=== PATIENT | female | born 1995 | race Caucasian/White ===

== ENCOUNTER → 2022-07-18 | Outpatient (CLI) | payer OTHER, SELFPAY ==
[2022-07-18 14:27] LABS: NATERA MAILED SPECIMEN
== END | disposition home or self-care (01) ==
LOC: LAB 11:13
PROVIDERS: Visit Provider Obstetrics & Gynecology
DX: Z31.5 Encounter for procreative genetic counseling (principal)
CPT/HCPCS: 36415

== ENCOUNTER 2022-11-14 15:01 | Outpatient (CLI) | payer OTHER, SELFPAY ==
[2022-11-17 09:07] LABS: Chlamydia By Nucleic Acid AMP Negative (Negative)
[2022-11-17 13:39] LABS: Gonococcus By Nucleic Acid AMP Negative (Negative)
== END 2022-11-14 23:59 | disposition home or self-care (01) ==
PROVIDERS: Visit Provider Obstetrics & Gynecology
DX: Z34.91 Encounter for supervision of normal pregnancy, unspecified, first trimester (principal); Z3A.09 9 weeks gestation of pregnancy
CPT/HCPCS: 87086; 87088; 87491; 87591

== ENCOUNTER 2022-11-14 15:03 | Outpatient (CLI) | payer OTHER, SELFPAY ==
[2022-11-14 15:22] LABS: Absolute Lymphocyte Count 1.97 X10^3/uL (0.83-4.51); Absolute Neutrophil Count 5.9 X10^3/uL (2.0-7.7); Basophil# 0.05 X10^3/uL; Basophil% 0.6 % (0-1); Eosinophil# 0.08 X10^3/uL; Eosinophils% 0.9 % (0-5); Hematocrit 38.5 % (37-47); Hemoglobin 12.6 g/dL (12.0-15.0); Lymphocyte # 1.97 X10^3/ul (0.83-4.51); Lymphocyte % 22.9 % (19-41); Mean Corp Hgb Conc 32.7 g/dL (32-36); Mean Corpuscular Hgb 29.5 pg (27.0-32.0); Mean Corpuscular Volume 90.2 fL (81-99); Mean Platelet Vol. 10.5 fl (6.2-12.0); Monocyte# 0.55 X10^3/uL; Monocyte% 6.4 % (0-10); NRBC Flagged by Analyzer 0 % (0-5); Neutrophil # 5.94 X10^3/uL (2.7-7.7); Neutrophil % 68.9 % (47-70); Platelet Count 253 K/mm3 (150-450); RBC Distribution Width CV 12.3 % (11.6-14.6); RBC Distribution Width SD 40.3 fl (35.1-43.9); Red Blood Count 4.27 M/mm3 (4.2-5.4); White Blood Count 8.6 K/mm3 (4.4-11.0)
[2022-11-14 16:41] LABS: HIV - WCH Non-Reactive (Nonreactive); Hepatitis B Surface Antigen Non-Reactive (Nonreactive); Rubella IgG Reactive (Nonreactive); Syphilis Antibodies Non-reactive
== END 2022-11-14 23:59 | disposition home or self-care (01) ==
PROVIDERS: Referring Provider Obstetrics & Gynecology; Visit Provider Obstetrics & Gynecology
DX: Z34.01 Encounter for supervision of normal first pregnancy, first trimester (principal); Z3A.09 9 weeks gestation of pregnancy
CPT/HCPCS: 36415; 85025; 86703; 86762; 86780; 86850; 86900; 86901; 87086; 87088; 87340; 87491; 87591

== ENCOUNTER → 2023-03-07 | Outpatient (CLI) | payer OTHER, SELFPAY ==
[2023-03-07 14:38] LABS: Glucose Challenge Gest 1H 50g 106 mg/dL (70-140)
[2023-03-07 15:17] LABS: HIV - WCH Non-Reactive (Nonreactive); Syphilis Antibodies Non-reactive
[2023-03-07 15:42] LABS: Hepatitis C Antibody Non-Reactive (Nonreactive)
== END | disposition home or self-care (01) ==
LOC: LAB 13:09
PROVIDERS: Referring Provider Obstetrics & Gynecology; Visit Provider Obstetrics & Gynecology
DX: Z34.00 Encounter for supervision of normal first pregnancy, unspecified trimester (principal); Z3A.09 9 weeks gestation of pregnancy
CPT/HCPCS: 36415; 82950; 86703; 86780; 86803

== ENCOUNTER → 2023-03-29 | Outpatient (CLI) | payer OTHER, SELFPAY ==
[2023-03-29 12:14] LABS: Absolute Lymphocyte Count 1.65 X10^3/uL (0.83-4.51); Absolute Neutrophil Count 5.9 X10^3/uL (2.0-7.7); Basophil# 0.03 X10^3/uL; Basophil% 0.4 % (0-1); Eosinophil# 0.04 X10^3/uL; Eosinophils% 0.5 % (0-5); Hematocrit 37.1 % (37-47); Hemoglobin 12.1 g/dL (12.0-15.0); Lymphocyte # 1.65 X10^3/ul (0.83-4.51); Mean Corp Hgb Conc 32.6 g/dL (32-36); Mean Corpuscular Hgb 30.9 pg (27.0-32.0); Mean Corpuscular Volume 94.6 fL (81-99); Mean Platelet Vol. 11.4 fl (6.2-12.0); Monocyte# 0.57 X10^3/uL; Monocyte% 6.9 % (0-10); NRBC Flagged by Analyzer 0 % (0-5); Neutrophil # 5.93 X10^3/uL (2.7-7.7); Neutrophil % 71.7 % (47-70); Platelet Count 215 K/mm3 (150-450); RBC Distribution Width CV 12.7 % (11.6-14.6); RBC Distribution Width SD 43.9 fl (35.1-43.9); Red Blood Count 3.92 M/mm3 (4.2-5.4); White Blood Count 8.3 K/mm3 (4.4-11.0)
== END | disposition home or self-care (01) ==
LOC: LAB 11:50
PROVIDERS: Referring Provider Obstetrics & Gynecology; Visit Provider Obstetrics & Gynecology
DX: Z34.00 Encounter for supervision of normal first pregnancy, unspecified trimester (principal)
CPT/HCPCS: 36415; 85025

== ENCOUNTER 2023-04-06 22:42 | Outpatient (CLI) | payer OTHER, SELFPAY ==
[2023-04-06 22:58] VITALS: BP 104/55; PULSE 67; TEMP 36.7; O2SAT 97
[2023-04-06 23:08] VITALS: BMI 22.9
--- NOTE | 2023-04-06 23:57 | OB.TRI.HP_ITS ---
HPI - General HPI Narrative JEFE CORNELL, is a 27 F who presents to labor and delivery for decreased movement and NST Maternal Data Information HELADIO Calculator Estimated Delivery Date Method Current WG Current Estimate 06/17/23 LMP (Certain) 31w 3d PFSH PFSH Medical History (Updated 04/18/23 @ 08:[address] Padmini Posey, DO) ADD (attention deficit disorder) Asthma Choroid plexus cyst Home Medications epuqndqs-yws-Rp-FA 1 mg tablet 1 tab PO 04/06/23 [History Last Taken 04/05/23] Allergy/AdvReac Type Severity Reaction Status Date / Time No Known Allergies Allergy Verified 04/06/23 23:13 Social History adopted: Yes household members: spouse housing: house current occupational status: unemployed current occupational exposures/hazards: No pets and animals: No history of recent travel: No sexually active: Yes Smoking Status: Never smoker second hand exposure: No alcohol intake: never substance use type: does not use well-balanced diet: daily or most days caffeine: No what type of physical activity do you participate in: walking and yoga olvin/zoroastrian: Amish seatbelt use: always do you feel safe at home: Yes 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, 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) History 2 1 Elective abortions Hx Para 0 Spontaneous abortions Hx # Term Pregnancies Ectopic pregnancies Hx # Pregnancies Multiple births # of living children Visit Details Expected Delivery Route/Plan Labor Preferences- CB/BF classes: [] labor support person: [] labor intervention preferences: [] pain management options preferred: [] cut cord/dad catch: [] : [] PP control planned: [] discussed possible routes of delivery and associated risks: [] special requests: [] Plans Covid status: discussed Flu vaccine: discussed Tdap vaccine: declined Rhogam: [] LARC form signed: [] movement and labor precautions reviewed. Problem list reviewed and updated with the most current plan of care details and appropriate orders placed. Relevant counseling for the gestational age provided. Continue routine care and follow up unless otherwise noted in visit notes/problem list details OB Flowsheet Initial Weight: Not Recorded Date -?-?-?-?-?-?-?-?-?-?-?-?- EGA Weight BP Urine Prot -?-?-?-?-?-?-?-?-?-?-?-?- Glucose FHR FuHt Pres Dilation -?-?-?-?-?-?-?-?-?-?-?-?- Effaced St Visit Note 11/14/22 -?-?-?-?-?-?-?-?-?-?-?-?- 9w 2d 129 lb 105/72 -?-?-?-?-?-?-?-?-?-?-?-?- 185 -?-?-?-?-?-?-?-?-?-?-?-?- SM- CRL 2.6cm co ns with LMP 12/11/22 -?-?-?-?-?-?-?-?-?-?-?-?- 13w 1d 133 lb 6 oz 103/66 Nega tive -?-?-?-?-?-?-?-?-?-?-?-?- Negative 150 -?-?-?-?-?-?-?-?-?-?-?-?- JV- still having nausea and inability to sleep. declines medications. having some lightning crotch we discussed etiology. 01/08/23 -?-?-?-?-?-?-?-?-?-?-?-?- 17w 1d 136 lb 2 oz 102/64 Nega tive -?-?-?-?-?-?-?-?-?-?-?-?- Negative 148 -?-?-?-?-?-?-?-?-?-?-?-?- MH-No Vb, crampi ng. Doing well. 02/05/23 -?-?-?-?-?-?-?-?-?-?-?-?- 21w 1d 139 lb 2 oz 110/65 Nega tive -?-?-?-?-?-?-?-?-?-?-?-?- Negative 145 -?-?-?-?-?-?-?-?-?-?-?-?- JV- lots of ques tions today about plan, depression, and anatomy scan. all answered. 03/07/23 -?-?-?-?-?-?-?-?-?-?-?-?- 25w 3d 144 lb 8 oz 104/59 Nega tive -?-?-?-?-?-?-?-?-?-?-?-?- Negative 140 25 -?-?-?-?-?-?-?-?-?-?-?-?- SM- no vb lof go od fm no regular ctx 04/04/23 -?-?-?-?-?-?-?-?-?-?-?-?- 29w 3d 145 lb 6 oz 109/74 Nega tive -?-?-?-?-?-?-?-?-?-?-?-?- Negative 145 29 -?-?-?-?-?-?-?-?-?-?-?-?- SM- no vb lof go od fm no regular ctx ROS Constitutional Constitutional: Reports systems reviewed and no addt'l complaints, except as documented Gastrointestinal Gastrointestinal: Denies bloating, constipation, cramping, diarrhea, nausea or vomiting Genitourinary Genitourinary: Reports other Details: Denies vaginal odor, vaginal bleeding, or vaginal discharge ; Denies difficulty urinating or flank pain NST FHR Rate Baby A Baseline: 135 Variability:: Moderate Accelerations:: 15 x 15 Decelerations:: None NST Reactive:: Yes FHR Category:: Category I Assessment & Plan (1) Decreased movement affecting management of mother, antepartum: (2) Depression affecting : COMMENT: no meds, counseling encouraged (3) Choroid plexus cyst: COMMENT: nipt declined. (4) Supervision of normal first : COMMENT: PRR HELADIO:06/17/2023. quang Joyner (5) : QUALIFIERS: Weeks of gestation: 25 weeks Qualified Code(s): Z3A.25 - 25 weeks gestation of COMMENT: anatomy nl, declined afp, genetic and carrier screening. (6) ADD (attention deficit disorder): COMMENT: was on Atarax (7) Asthma: COMMENT: daily advair PLAN: Plan NST reactive and patient reassured ok to dc to home Charges/Coding Multi Select Codes Urinary/Genital Urinary/Genital CPT Codes: 94537-23 non-stress test Interp
== END 2023-04-07 00:10 | disposition home or self-care (01) ==
LOC: WPOUT 22:49 → WP 22:49
PROVIDERS: Referring Provider Obstetrics & Gynecology; Visit Provider Obstetrics & Gynecology
DX: O36.8120 Decreased fetal movements, second trimester, not applicable or unspecified (principal); Z3A.25 25 weeks gestation of pregnancy; O99.342 Other mental disorders complicating pregnancy, second trimester; F32.A Depression, unspecified; O99.352 Diseases of the nervous system complicating pregnancy, second trimester; G93.0 Cerebral cysts; F98.8 Other specified behavioral and emotional disorders with onset usually occurring in childhood and adolescence; O99.512 Diseases of the respiratory system complicating pregnancy, second trimester; J45.909 Unspecified asthma, uncomplicated
CPT/HCPCS: 59025; 59050

== ENCOUNTER → 2023-04-30 | Outpatient (CLI) | payer OTHER, SELFPAY ==
--- NOTE | 2023-04-30 15:50 | US_ITS ---
STUDY: SECOND AND THIRD TRIMESTER OBSTETRICAL ULTRASOUND - LIMITED REASON FOR EXAM: Female, 27 years old small for gestational age LMP: 09/10/2022. Established due date: 06/17/2023. Gestational age by LMP: 33 weeks 1 day. PRIOR ULTRASOUND: None. TECHNIQUE: Transabdominal scanning. TECHNICAL QUALITY: Adequate. FINDINGS: There is a single intrauterine fetus. The fetus is in a cephalic presentation. There is demonstrated cardiac activity with a heart rate of 141 bpm. There is a normal amniotic fluid volume. The largest amniotic fluid pocket measures 4.9 cm. The amniotic fluid index (LAZARUS) is 13.3 cm. The placenta is anterior; no placenta previa or abruption. The cervix measures 3.1 cm in length, and is closed. BIOMETRY: BPD: 8.53 cm: 34 weeks, 3 days HC: 30.85 cm: 34 weeks, 3 days AC: 20.47 cm: 32 weeks, 3 days FL: 6.11 cm: 31 weeks, 5 days CI: 78.7% FL/AC: 21.5% FL/BPD : 71.7% HC/AC 1.08 Age by LMP: 33 weeks, 1 days. HELADIO by LMP: 06/17/2023. age by current US: 33 weeks, 5 days. HELADIO by current US: 06/13/2023. Estimated weight: 2023 grams, +/- 303 grams, 28 percentile. US/OB Limited With Biometrics IMPRESSION: Single intrauterine gestation demonstrating cardiac activity. by current ultrasound: 33 weeks 5 days. LAZARUS: 13.3 cm. Electronically Signed: Prabhakar Rg MD at 23:34 EDT ,
== END | disposition home or self-care (01) ==
LOC: US 15:49
PROVIDERS: Referring Provider Obstetrics & Gynecology; Visit Provider Obstetrics & Gynecology
DX: O36.5990 Maternal care for other known or suspected poor fetal growth, unspecified trimester, not applicable or unspecified (principal)
CPT/HCPCS: 76816

== ENCOUNTER → 2023-05-23 | Outpatient (CLI) | payer OTHER, SELFPAY | END | disposition home or self-care (01) | PROVIDERS: Visit Provider Advanced Practice Midwife | DX: Z34.90 Encounter for supervision of normal pregnancy, unspecified, unspecified trimester (principal) | CPT/HCPCS: 87081 ==

== ENCOUNTER 2023-06-10 15:55 | Outpatient (CLI) | payer OTHER, SELFPAY ==
--- NOTE | 2023-06-10 16:01 | US_ITS ---
INDICATION: measuring small for gestational age COMPARISON: None. FINDINGS: 34+58 grayscale ultrasound images demonstrate single live intrauterine in cephalic presentation measuring at 37 weeks +6 days average ultrasound age. Estimated weight 3014 g, 18th percentile. heart rate 150 bpm. Adequate amniotic fluid for gestational age, LAZARUS 12 cm. Deepest vertical pocket 3.8 cm x 2.0 cm. Anterior placenta is unremarkable for gestational age. Few prominent venous lakes. Uterine myometrium is unremarkable. Uterine cervix is not well visualized. Bilateral ovaries are not visualized. Biophysical profile 6/8, with 2 points each for movement, tone, and amniotic fluid. 0 points for breathing movements. No significant free fluid. US/Biophysical Prof W/O Non Stres IMPRESSION: Single live intrauterine in cephalic presentation measuring at 37 weeks +6 days average ultrasound age. Estimated weight 3014 g, 18th percentile. Biophysical profile 68. Electronically Signed: Rodger Ragsdale MD at 2:00 EDT ,
--- NOTE | 2023-06-10 16:01 | US_ITS ---
INDICATION: measuring small for gestational age COMPARISON: None. FINDINGS: 34+58 grayscale ultrasound images demonstrate single live intrauterine in cephalic presentation measuring at 37 weeks +6 days average ultrasound age. Estimated weight 3014 g, 18th percentile. heart rate 150 bpm. Adequate amniotic fluid for gestational age, LAZARUS 12 cm. Deepest vertical pocket 3.8 cm x 2.0 cm. Anterior placenta is unremarkable for gestational age. Few prominent venous lakes. Uterine myometrium is unremarkable. Uterine cervix is not well visualized. Bilateral ovaries are not visualized. Biophysical profile /8, with 2 points each for movement, tone, and amniotic fluid. 0 points for breathing movements. No significant free fluid. US/OB Limited With Biometrics IMPRESSION: Single live intrauterine in cephalic presentation measuring at 37 weeks +6 days average ultrasound age. Estimated weight 3014 g, 18th percentile. Biophysical profile 05/08. Electronically Signed: Rodger Ragsdale MD at 2:00 EDT ,
[2023-06-10 16:11] VITALS: O2SAT 98
[2023-06-10 16:12] VITALS: BP 115/71; PULSE 65; PULSE 66; TEMP 36.3; O2SAT 99
[2023-06-10 16:15] VITALS: BMI 23.8
--- NOTE | 2023-06-10 20:29 | NURSING ---
Called [facility] and notified RN was still waiting on growth US results. MD states to call department and if LAZARUS is greater than 6 and growth percentile is greater than 10 pt can go home. Rn called US and received the results of LAZARUS 11.8, and growth percentage is 18%. RN to notify pt and pt to be DC home.
--- NOTE | 2023-06-10 20:50 | OB.TRI.PN ---
Progress Notes Date of Service: 06/10/23 Progress Note: Patient presents for triage evaluation secondary to questionable ROM FHT: 130 Moderate variability reactive no decelerations category I tracing [place]: no regular Contractions Assessment and plan: amniotic membranes intact false labor Reactive NST, reassuring maternal and status patient discharged to home to follow-up as scheduled. See problem list details for additional plan information. Charges/Coding Procedures Urinary/Genital [id number]: 76209-67 non-stress test Interp
== END 2023-06-10 20:35 | disposition home or self-care (01) ==
LOC: WPOUT 16:00 → WP 16:00
PROVIDERS: Referring Provider Obstetrics & Gynecology; Visit Provider Obstetrics & Gynecology
DX: O47.9 False labor, unspecified (principal); Z3A.00 Weeks of gestation of pregnancy not specified
CPT/HCPCS: 59025; 59050; 76816; 76819; 99221; G0378

== ENCOUNTER → 2023-06-10 | Outpatient (CLI) | payer OTHER, SELFPAY ==
[2023-06-10 16:14] LABS: ROM Internal Control Test YES-OK TO RESULT pt. (Internal QC); ROM Patient Test Negative (Negative); Record Kit Lot#, ROM+ K1374
== END | disposition home or self-care (01) ==
PROVIDERS: Referring Provider Advanced Practice Midwife; Visit Provider Advanced Practice Midwife
DX: N89.8 Other specified noninflammatory disorders of vagina (principal)
CPT/HCPCS: 84112

== ENCOUNTER 2023-06-20 22:40 | Inpatient (IN) | payer OTHER, SELFPAY ==
[2023-06-20 22:19] VITALS: BP 133/76; PULSE 73; O2SAT 99
[2023-06-20 22:21] VITALS: TEMP 36.6
[2023-06-20 22:42] VITALS: BMI 23.5
[2023-06-20] MEDS: LACTATED RINGERS 500 ML 999 ML IV (23:10)
[2023-06-20] MEDS: Ondansetron 4 MG/2 ML Vial IV (23:23)
[2023-06-20 23:26] LABS: Absolute Lymphocyte Count 2.35 X10^3/uL (0.83-4.51); Basophil# 0.06 X10^3/uL; Basophil% 0.4 % (0-1); Eosinophil# 0.04 X10^3/uL; Eosinophils% 0.2 % (0-5); Hematocrit 39.7 % (37-47); Hemoglobin 13.5 g/dL (12.0-15.0); Lymphocyte # 2.35 X10^3/ul (0.83-4.51); Lymphocyte % 14.5 % (19-41); Mean Corpuscular Hgb 31.1 pg (27.0-32.0); Mean Corpuscular Volume 91.5 fL (81-99); Mean Platelet Vol. 11.6 fl (6.2-12.0); Monocyte# 0.59 X10^3/uL; Monocyte% 3.6 % (0-10); NRBC Flagged by Analyzer 0 % (0-5); Neutrophil # 13.04 X10^3/uL (2.7-7.7); Neutrophil % 80.7 % (47-70); Platelet Count 215 K/mm3 (150-450); RBC Distribution Width CV 12.5 % (11.6-14.6); RBC Distribution Width SD 41.6 fl (35.1-43.9); Red Blood Count 4.34 M/mm3 (4.2-5.4); White Blood Count 16.2 K/mm3 (4.4-11.0)
[2023-06-20] MEDS: Lactated Ringers 1,000 ML 200 ML IV (23:40)
[2023-06-21] VITALS (82 sets, daily range): BP systolic 89–158; BP diastolic 11–91; PULSE 58–214; RESP 14–18; TEMP 36.3–37.7; O2SAT 81–100
[2023-06-21] MEDS: fentaNYL-bupivacaine (epidural) 100 ML BAG EPIDURAL (00:17)
[2023-06-21 01:17] LABS: Syphilis Antibodies Non-reactive
[2023-06-21] MEDS: LACTATED RINGERS 500 ML 999 ML IV (01:43)
[2023-06-21] MEDS: Oxytocin 10 UNITS/ML Vial IM (04:49)
[2023-06-21] MEDS: Oxytocin 15 Units/NS 250ml 15 UNITS/250 ML IV.SOLN 83 UNITS IV (04:50)
--- NOTE | 2023-06-21 05:10 | HP.PCM.OB_ITS ---
HPI - General General Date of Admission: 06/20/23 HPI Narrative JEFE CORNELL, is a 27 y/o @ 40 weeks 4 days who presents to L&D in active labor. Contractions are coming every 5 minutes and she is tearful, requesting an epidural. Maternal Data Information HELADIO Calculator Estimated Delivery Date Method Current WG Current Estimate 06/17/23 LMP (Certain) 40w 4d Final HELADIO: 06/17/23 Gestational age: 40 weeks 4 days PFSH PFSH Medical History (Updated 06/20/23 @ 23:30 by Janel Pedraza) ADD (attention deficit disorder) Asthma Choroid plexus cyst Depression Home Medications vnxwogzu-vpt-Ch-FA 1 mg tablet 1 tab PO DAILY 04/06/23 [History Last Taken 06/20/23] sertraline 50 mg tablet (Zoloft) 50 mg PO DAILY #30 tabs 05/26/23 [Rx Last Taken 06/20/23] albuterol sulfate 90 mcg/actuation aerosol inhaler inhalation 06/20/23 [History Last Taken Unknown] fluticasone 100 mcg-salmeterol 50 mcg/dose blistr powdr for inhalation (Advair Diskus) inhalation 06/20/23 [History Last Taken 06/20/23] Allergy/AdvReac Type Severity Reaction Status Date / Time No Known Allergies Allergy Verified 06/20/23 22:22 Social History adopted: Yes household members: spouse housing: house current occupational status: unemployed current occupational exposures/hazards: No pets and animals: No history of recent travel: No sexually active: Yes Smoking Status: Never smoker second hand exposure: No alcohol intake: never substance use type: does not use well-balanced diet: daily or most days caffeine: No what type of physical activity do you participate in: walking and yoga olvin/taoism: Yarsani seatbelt use: always do you feel safe at home: Yes 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, 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 1 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 abortions Hx Para 0 Spontaneous abortions Hx # Term Pregnancies Ectopic pregnancies Hx # Pregnancies Multiple births # of living children Visit Details Expected Delivery Route/Plan Labor Preferences- CB/BF classes: end may labor support person: Ar labor intervention preferences: wants to try different positions, not on back laboring, tub, shower pain management options preferred: open to epidural if needed, prefers nitrous first cut cord/dad catch: Ar to cut cord : yes PP control planned: undecided for now, No Iud discussed possible routes of delivery and associated risks: discussed special requests: nurses to be present at all times. no episiotomy. Plans Covid status: discussed Flu vaccine: discussed Tdap vaccine: declined Rhogam: na LARC form signed: movement and labor precautions reviewed. Problem list reviewed and updated with the most current plan of care details and appropriate orders placed. Relevant counseling for the gestational age provided. Continue routine care and follow up unless otherwise noted in visit notes/problem list details OB Flowsheet Initial Weight: Not Recorded Date -?-?-?-?-?-?-?-?-?-?-?-?- EGA Weight BP Urine Prot -?-?-?-?-?-?-?-?-?-?-?-?- Glucose FHR FuHt Pres Dilation -?-?-?-?-?-?-?-?-?-?-?-?- Effaced St Visit Note 11/14/22 -?-?-?-?-?-?-?-?-?-?-?-?- 9w 2d 129 lb 105/72 -?-?-?-?-?-?-?-?-?-?-?-?- 185 -?-?-?-?-?-?-?-?--?-?-?-?- SM- CRL 2.6cm co ns with LMP 12/11/22 -?-?-?-?-?-?-?-?-?-?-?-?- 13w 1d 133 lb 6 oz 103/66 Nega tive -?-?-?-?-?-?-?-?-?-?-?-?- Negative 150 -?-?-?-?-?-?-?-?-?-?-?-?- JV- still having nausea and inability to sleep. declines medications. having some lightning crotch we discussed etiology. 01/08/23 -?-?-?-?-?-?-?-?-?-?-?-?- 17w 1d 136 lb 2 oz 102/64 Nega tive -?-?-?-?-?-?-?-?-?-?-?-?- Negative 148 -?-?-?-?-?-?-?-?-?-?-?-?- MH-No Vb, romie ng. Doing well. 02/05/23 -?-?-?-?-?-?-?-?-?-?-?-?- 21w 1d 139 lb 2 oz 110/65 Nega tive -?-?-?-?-?-?-?-?-?-?-?-?- Negative 145 -?-?-?-?-?-?-?-?-?-?-?-?- JV- lots of ques tions today about plan, depression, and anatomy scan. all answered. 03/07/23 -?-?-?-?-?-?-?-?-?-?-?-?- 25w 3d 144 lb 8 oz 104/59 Nega tive -?-?-?-?-?-?-?-?-?-?-?-?- Negative 140 25 -?-?-?-?-?-?-?-?-?-?-?-?- SM- no vb lof go od fm no regular ctx 04/04/23 -?-?-?-?-?-?-?-?-?-?-?-?- 29w 3d 145 lb 6 oz 109/74 Nega tive -?-?-?-?-?-?-?-?-?-?-?-?- Negative 145 29 -?-?-?-?-?-?-?-?-?-?-?-?- SM- no vb lof go od fm no regular ctx 04/25/23 -?-?-?-?-?-?-?-?-?-?-?-?- 32w 3d 147 lb 8 oz 126/74 Nega tive -?-?-?-?-?-?-?-?-?-?-?-?- Negative 140 29 -?-?-?-?-?-?-?-?-?-?-?-?- JV- still measur ing small. will order growth scan but suspect long torso 05/08/23 -?-?-?-?-?-?-?-?-?-?-?-?- 34w 2d 147 lb 8 oz 106/68 Nega tive -?-?-?-?-?-?-?-?-?-?-?-?- Negative 145 33 -?-?-?-?-?-?-?-?-?-?-?-?- SM- no vb lof go od fm no regular ctx 05/23/23 -?-?-?--?-?-?-?-?-?-?-?-?- 36w 3d 149 lb 8 oz 114/68 Nega tive -?-?-?-?-?-?-?-?-?-?-?-?- Negative 130 34 -?-?-?-?-?-?-?-?-?-?-?-?- KW-+FM. no lof/v b/ctx. GBS today. deferred SVE. LARC done 06/04/23 -?-?-?-?-?-?-?-?-?-?-?-?- 38w 1d 151 lb 107/72 Negative -?-?-?-?-?-?-?-?-?-?-?-?- Negative 130 35 Cephalic -?-?-?-?-?-?-?-?-?-?-?-?- JV- no lof, vagi nal bleeding, or dec fm JV- no lof, vaginal bleeding , or dec fm. feeling fatigue and nausea with the zoloft 50mg, will go down to 25mg. JV- no lof, vaginal bleeding , or dec fm. feeling fatigue and nausea with the zoloft 50mg, will go down to 25mg. LAZARUS 9, but if measuring small next visit will need formal ultrasound. 06/10/23 -?-?-?-?-?-?-?-?-?-?-?-?- 39w 0d 151 lb 111/72 Negative -?-?-?-?-?-?-?-?-?-?-?-?- Negative 150 34 Cephalic 2 -?-?-?-?-?-?-?-?-?-?-?-?- 70 -2 KW-+FM, po ssible SROM- ROM+ today. no ctx/vb. US ordered S<D KW-+FM, possible SROM- ROM+ today. no ctx/vb. to WP. 06/11/23 -?-?-?-?-?-?-?-?-?-?-?-?- 39w 1d 150 lb 2 oz 107/68 Nega tive -?-?-?-?-?-?-?-?-?-?-?-?- Negative 130 2 -?-?-?-?-?-?-?-?-?-?-?-?- 70 KW-+FM. membrane sweep today. labor precautions reviewed. Had BPP (6/8) and growth (18%) on L&D yesterday. 06/13/23 -?-?-?-?-?-?-?-?-?-?-?-?- 39w 3d 151 lb 2 oz 100/60 Nega tive -?-?-?-?-?-?-?-?-?-?-?-?- Negative 130 34 Cephalic 2 -?-?-?-?-?-?-?-?-?-?-?-?- 70 -2 KW-+fm. no vb/lof. some irregular contractions. membrane sweep 06/20/23 -?-?-?-?-?-?-?-?-?-?-?-?- 40w 3d 151 lb 2 oz 108/64 Nega tive -?-?-?-?-?-?-?-?-?-?-?-?- Negative 130 37 Cephalic 2 .5 -?-?-?-?-?-?-?-?-?-?-?-?- 80 -2 LC-no lof/ vb/no consistent ctx. reviewed r/b/a of proceeding past 41 weeks. will obtain growth and bpp at 41 weeks. nst at 41.3 with IOL at 41.6. reviewed with SM who agrees with plan. LC-no lof/vb/no consistent c tx. reviewed r/b/a of proceeding past 41 weeks. will obtain growth and bpp at 41 weeks. nst at 41.3 with IOL scheduled on 06/30. reviewed with SM who agrees with plan. ROS Constitutional Constitutional: Denies change in weight, fatigue, fever(s), headache(s), poor appetite or weakness Eyes Eyes: Denies blurry vision, change in vision, seeing flashes or spots in vision ENT HEENT: Denies dizziness, headache(s), loss taste/smell or sore throat Cardiovascular Cardiovascular: Denies chest pain, dizziness, dyspnea, irregular heart rhythm, leg edema, palpitations, rapid heart rate or vomiting Respiratory/Chest Respiratory/Chest: Denies chest tightness, cough, dyspnea or breast pain Gastrointestinal Gastrointestinal: Denies abdominal pain, anorexia, constipation, cramping, diarrhea, hemorrhoids, vomiting or weight changes Genitourinary Genitourinary: Denies dysuria, flank pain, genital lesions, genital pain, urinary frequency or urinary urgency Musculoskeletal Musculoskeletal: Denies back pain, difficulty walking, joint pain, limited range of motion, muscle cramps or numbness Integumentary Integumentary: Denies lesions or unusual bruising Neurologic Neurologic: Denies abnormal movements, abnormal speech, dizziness, numbness, seizure-like activity or syncope Psychiatric Psychiatric: Denies anxiety, behavioral changes, change in appetite, change in libido, cognitive impairment, confusion, depression, difficulty concentrating, hallucinations or suicidal thoughts Endocrine Endocrinology: Denies excessive sweating, polydipsia or polyuria Hematologic/Lymphatic Hematologic/Lymphatic: Denies easy bleeding, easy bruising or lymphadenopathy Allergic/Immunologic Allergic/Immunologic: Denies itchy eyes, lip swelling, seasonal rhinorrhea, rhinitis, throat swelling, tongue swelling, eczemia, wheezing or asthma Vital Signs Vital Signs Vital Signs: 06/20/23 22:19 06/20/23 22:19 06/20/23 22:19 Temperature Temperature Source Pulse Rate 73 Blood Pressure 133/76 H BP Systolic 133 BP Diastolic 76 Pulse Ox 99 06/20/23 22:21 06/20/23 22:21 06/21/23 00:05 Temperature 97.8 F Temperature Source Temporal Pulse Rate 97 Blood Pressure BP Systolic BP Diastolic Pulse Ox 06/21/23 00:05 06/21/23 00:10 06/21/23 00:10 Temperature Temperature Source Pulse Rate 93 Blood Pressure BP Systolic BP Diastolic Pulse Ox 98 100 06/21/23 00:11 06/21/23 00:11 06/21/23 00:15 Temperature Temperature Source Pulse Rate 95 77 Blood Pressure 123/83 H BP Systolic 123 BP Diastolic 83 Pulse Ox 06/21/23 00:15 06/21/23 00:17 06/21/23 00:17 Temperature Temperature Source Pulse Rate 66 Blood Pressure 130/81 H BP Systolic 130 BP Diastolic 81 Pulse Ox 100 06/21/23 00:20 06/21/23 00:20 06/21/23 00:22 Temperature Temperature Source Pulse Rate 71 Blood Pressure 121/63 H BP Systolic 121 BP Diastolic 63 Pulse Ox 98 06/21/23 00:22 06/21/23 00:25 06/21/23 00:25 Temperature Temperature Source Pulse Rate 73 74 Blood Pressure BP Systolic BP Diastolic Pulse Ox 100
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
--- NOTE | 2023-06-21 05:15 | OP.PCM_ITS ---
Assessment & Plan (1) Small for gestational age fetus affecting management of mother: COMMENT: 5/ 28% (2) Depression affecting : COMMENT: counseling encouraged started on zoloft at 36 weeks for intrusive thoughts of harm.no plan. support international resources. to present to ED if having suicidial ideations. safe plan in place on who to call. (3) Supervision of normal first : COMMENT: PRR HELADIO:06/17/2023. quang Joyner (4) : QUALIFIERS: Weeks of gestation: 40 weeks Qualified Code(s): Z3A.40 - 40 weeks gestation of COMMENT: anatomy nl, declined afp, genetic and carrier screening. gbs negative (5) Choroid plexus cyst: COMMENT: nipt declined. (6) ADD (attention deficit disorder): COMMENT: was on Atarax (7) Asthma: COMMENT: daily advair Maternal Data Information HELADIO Calculator Estimated Delivery Date Method Current WG Current Estimate 06/17/23 LMP (Certain) 40w 4d Vaginal Delivery Maternal Presentation Maternal Presentation: Active Labor Type of Induction: Amniotomy Operative Information Date of Procedure: 06/21/23 Pre-Operative Diagnosis: @ 40 weeks 4 days, active labor Post-Operative Diagnosis: @ 40 weeks 4 days, active labor Surgery / Procedure Performed: Spontaneous Vaginal Delivery Type of Anesthesia: Epidural Estimated Blood Loss: 200cc Findings Description of Procedure: Patient began pushing and delivered the head in the CONNER presentation. The head was delivered atraumatically.. The anterior and posterior shoulders delivered without complication followed by the rest of the infant and the was placed on the maternal abdomen. Delayed cord clamping was employed for approximately 60 seconds. Cord was clamped and cut and gentle traction was applied to the cord and the placenta delivered spontaneously immediately following it was noted to be intact with three-vessel cord. The perineum and vagina were inspected and noted to have no laceration. There was a right labial tear that was repaired using a 3-0 vicryl and a left vaginal wall laceration that was also repaired with a 3-0 vicryl. EBL was 200. Patient and infant tolerated delivery well. Presentation: Vertex Amniotic Membrane Rupture Type: Artificial Amniotic Fluid Description: Lightly stained meconium Placental Delivery Description: Spontaneous Placenta Disposition: [facility] Cord Vessel Description: 3 Vessels Cord Entanglement: None Infant A Gender: Male (1 minute): 8 (5 minute): 9 Delayed Cord Clamping: Yes Post Vaginal Delivery Medications Given After Delivery: IM Pitocin Episiotomy Description: None Laceration: Periurethral Extnsion/lac (right labial and left side wall, close to urethra) Multi Select Codes Urinary/Genital Urinary/Genital CPT Codes: 79926 Vaginal Delivery [facility]
--- NOTE | 2023-06-21 05:20 | DCINST_ITS ---
Discharge Instructions Diet Discharge Diet: No restrictions Activity Discharge Activity: Return to Normal Activity, May Not Drive (while taking narcotic pain medications.) and May Shower May resume sexual activity in: 4-6 weeks Dressing / Incision Call your doctor if your incision/area has: Continuous Slow Oozing, Sudden Increased Bleeding, Increased Pain/ Swelling, Increased Redness and Foul Smelling Discharge Follow Up Care Please Follow Up With: Padmini Posey DO When: Call [phone] to make an appointment with your doctor in 6 weeks. If you had elevated blood pressure or 4th degree laceration, you will need to be seen in 2 weeks. Test Results: Test results from this visit will be discussed in further detail at your follow- up appointment, if applicable. Discharge Plan Admission Admit Date/Time: 06/20/23 22:40 Primary Reason for Your Visit: vaginal delivery and labial repair Attending Provider: Padmini Posey Primary Care Provider: Care Physician,Tatum Primary Discharge Orders/Prescriptions Prescriptions: New naproxen 500 mg tablet 500 mg PO BID PRN (Reason: pain) Qty: 30 0RF Continued sertraline [Zoloft] 50 mg tablet 50 mg PO DAILY Qty: 30 1RF [id number] 1 mg Tablet 1 tab PO DAILY fluticasone propion-salmeterol [Advair Diskus] 100-50 mcg/dose blister with device INHALATION albuterol sulfate 90 mcg/actuation HFA aerosol inhaler INHALATION Referrals / Follow Up: Care Physician,No Primary [Primary Care Provider] - Disposition Disposition (needs filled in before D/C Order can be placed): Home, Self Care
[2023-06-21] MEDS: Acetaminophen 500 MG Tablet 1000 MG PO ×3 (06:33→20:50)
[2023-06-21] MEDS: Naproxen 500 MG Tablet PO ×3 (08:05→23:32)
[2023-06-21] MEDS: Senna/Docusate Sodium 1 Tablet PO (10:06)
[2023-06-21] MEDS: Sertraline 50 MG Tablet PO (10:06)
[2023-06-21] MEDS: Benzocaine/Lanolin/Aloe Vera 1 SPRAY EACH TOPICAL (10:06)
[2023-06-21] MEDS: 0.9% Saline Lock 10 ML Syringe IV (10:07)
--- NOTE | 2023-06-21 20:37 | CASEMGMT ---
Social Work Assessment Labor and Delivery Unit Patient Address: [address] [place] Phone number: [phone] Date of Referral: 06/21/2023 Time of Referral:? 7:00 Referred By: Joanne Hernandez Date of Intervention: ?06/21/2023 Time of Intervention:? 17:30 Reason for Referral:? Mental Health hx History obtained from: medical records and mother of baby (MOB) Household composition: FOB, Ar and MOB and new baby Patient's parent/guardian status:? Parents report being and knowing each other for 2.5 years. Both report no other children. Medical History: MOB denies any medical concerns. MOB had adequate care. Baby boy weighing 5.9 lbs and 8/9 apgars. No medical concerns. Educational Status: No literacy concerns. Financial Status: Parents deny any financial needs or concerns. Supplies: Report bed and pack and play in parent?s room. Car seat and all other supplies available. Childcare/Caregiver(s):? MOB plans to stay home with child. Transportation: No concerns, two vehicles. Programs/Agencies Involved: ???None reported Children Services/Legal Issues:??? None reported Behavioral Health Issues: ?? Mental Health History: Patient reports having a counselor she is established with. Hx of ADHD with Adderall prior to . Pt reports depression/anxiety concerns and reports difficulty during and starting Zoloft while due to intrusive thoughts. Pt reports planning to continue Zoloft and being willing to discuss mental health with doctor symptoms worsen. Substance Use History:? Denies Family History: MOB is unaware of family history due to being adopted from an orphanage. Drug Screens: None Family/Social Stressors: Denies any stressors.? Support Systems: MOB/FOB report FOB?s parents are close and supportive. Depression: Provided education and resources, parents responded appropriately. Shaken Baby: Provided education and resources, parents responded appropriately. Safe Sleeping: Provided education and resources, parents responded appropriately. ASSESSMENT:? Nursing staff reports a lot of fluctuation in emotional status with MOB. MOB was open regarding difficulty with trusting staff during the process and anxiety regarding feeling out of control. SW assisted in processing this experience. Emotions stable and appropriate throughout assessment. SW provided [facility] resources, discussed mental health warning signs and encouraged MOB to seek help if needed. MOB is adopted without knowledge of family mental health history. MOB was appropriate with SW and holding baby with positive interactions throughout assessment. PLAN:? No other services requested or indicated. Yolanda Castro EXTRUDING PRESS ADJUSTER, EMERGENCY CARE TECH
[2023-06-22] MEDS: Acetaminophen 500 MG Tablet 1000 MG PO ×3 (02:12→21:21)
[2023-06-22 04:59] VITALS: BP 102/59; PULSE 75; RESP 18
[2023-06-22] MEDS: Naproxen 500 MG Tablet PO ×2 (07:27→16:11)
[2023-06-22 07:57] VITALS: BP 107/58; PULSE 64
[2023-06-22 07:58] VITALS: BP 107/58; PULSE 64; RESP 16; TEMP 36.6
--- NOTE | 2023-06-22 08:33 | PCM.PN.OB ---
Subjective Subjective Patient is in bed breast feeding. She states that the pain with breast feeding causing contractions is severe. She is tolerating PO, Ambulating and voiding without difficulty.She Denies chest pain, shortness of breath, calf pain/swelling, fevers, chills, lightheadedness. Objective Data Objective Data Vital Signs: Vital Signs Temp Pulse Resp BP Pulse Ox O2 Del Method 97.9 F 64 16 107/58 L 99 Room Air 06/22/23 07:58 06/22/23 07:58 06/22/23 07:58 06/22/23 07:58 06/21/23 16:15 06/22/23 07:58 Oxygen Delivery Method Room Air Weight: 150 lb Body Mass Index (BMI) 23.5 Intake & Output: Intake and Output for Last 24 Hours 06/20/23 06/21/23 06/22/23 23:59 23:59 23:59 Intake Total 499.5 / 499.5 1663.33 / 1663.33 Output Total 2950 / 2950 Balance 499.5 / 499.5 -1286.67 / -1286.67 Lab / Micro Data 06/20/23 23:10 ROS Constitutional Constitutional: Denies chills, fatigue, fever(s), poor appetite or weakness Eyes Eyes: Denies blurry vision, change in vision, seeing flashes or spots in vision ENT HEENT: Denies dizziness, headache(s), loss taste/smell or sore throat Cardiovascular Cardiovascular: Denies chest pain, dizziness, dyspnea, irregular heart rhythm, palpitations or rapid heart rate Respiratory/Chest Respiratory/Chest: Denies chest tightness, cough, dyspnea or breast pain Gastrointestinal Gastrointestinal: Denies abdominal pain, constipation or vomiting Genitourinary Genitourinary: Denies dysuria or flank pain Musculoskeletal Musculoskeletal: Denies difficulty walking, joint pain, limited range of motion or numbness Neurologic Neurologic: Denies abnormal movements, abnormal speech, dizziness, numbness, seizure-like activity or syncope Psychiatric Psychiatric: Denies anxiety, behavioral changes, change in appetite, confusion, depression or suicidal thoughts Physical Exam Const alert, oriented x3 and no apparent distress General Appearance: cooperative and comfortable Resp normal respiratory effort Cardio regular rate GI normal to inspection, nondistended, normoactive bowel sounds GI Narrative: uterus is firm below umbilicus Palpation: soft Back/Spine no CVA tenderness and thoraco-lumbar ROM normal Extremity normal to inspection, no clubbing, cyanosis or edema, no calf tenderness and no pedal edema Psych mental status grossly normal, thought process normal, cooperative, affect normal, speech normal, activity/motor behavior normal, denies homicidal ideation and denies suicidal ideation Assessment & Plan (1) Status post vaginal delivery: COMMENT: 06/21/23- KELVIN PLAN: s/p PPD # 1 1. routine post delivery care 2. breast feeding- support given 3. rh positive 4. rubella immune 5. plan for dc to home tomorrow
[2023-06-22] MEDS: Sertraline 50 MG Tablet 25 MG PO (10:51)
[2023-06-22] MEDS: Senna/Docusate Sodium 1 Tablet PO (12:41)
[2023-06-22 14:39] VITALS: BP 119/59; PULSE 70; RESP 16; TEMP 36.6; O2SAT 99
[2023-06-22 19:47] VITALS: BP 114/57; PULSE 62; RESP 14; TEMP 36.2
[2023-06-22 19:50] VITALS: BP 114/57; PULSE 62
[2023-06-23] MEDS: Naproxen 500 MG Tablet PO ×2 (00:19→08:52)
[2023-06-23] MEDS: Acetaminophen 500 MG Tablet 1000 MG PO (03:46)
[2023-06-23 03:48] VITALS: BP 118/66; PULSE 67; RESP 14; TEMP 36.1
[2023-06-23 07:43] VITALS: BP 106/57; PULSE 73
[2023-06-23 07:50] VITALS: BP 106/57; PULSE 73; RESP 18; TEMP 36.1
--- NOTE | 2023-06-23 08:28 | PCM.PN.OB ---
Subjective Subjective Patient doing well without complaints. Tolerating PO. Ambulating and voiding without difficulty. Feeding well. Denies chest pain, shortness of breath, calf pain/swelling, fevers, chills, lightheadedness. Objective Data Objective Data Vital Signs: Vital Signs Temp Pulse Resp BP Pulse Ox O2 Del Method 96.9 F L 73 18 106/57 L 99 Room Air 06/23/23 07:50 06/23/23 07:50 06/23/23 07:50 06/23/23 07:50 06/22/23 14:39 06/23/23 03:48 Oxygen Delivery Method Room Air Weight: 150 lb Body Mass Index (BMI) 23.5 Intake & Output: Intake and Output for Last 24 Hours 06/21/23 06/22/23 06/23/23 23:59 23:59 23:59 Intake Total 1663.33 / 1663.33 Output Total 2950 / 2950 Balance -1286.67 / -1286.67 Lab / Micro Data 06/20/23 23:10 Physical Exam Const alert, oriented x3 and no apparent distress General Appearance: cooperative and comfortable Resp normal respiratory effort Cardio regular rate GI normal to inspection, nondistended, normoactive bowel sounds GI Narrative: uterus is firm 4FB below umbilicus Palpation: soft Back/Spine no CVA tenderness and thoraco-lumbar ROM normal Extremity normal to inspection, no clubbing, cyanosis or edema, no calf tenderness and no pedal edema Psych mental status grossly normal, thought process normal, cooperative, affect normal, speech normal, activity/motor behavior normal, denies homicidal ideation and denies suicidal ideation Assessment & Plan (1) Status post vaginal delivery: COMMENT: 06/21/23- KELVIN Gan (2) Depression affecting : COMMENT: counseling encouraged started on zoloft at 36 weeks for intrusive thoughts of harm.no plan. support [employer]. to present to ED if having suicidial ideations. safe plan in place on who to call. PLAN: Plan s/p PPD # 2 1. routine post delivery care 2. breast feeding- support given 3. rh positive 4. rubella immune 5. d/c home today
[2023-06-23] MEDS: Sertraline 50 MG Tablet 25 MG PO (08:52)
== END 2023-06-23 11:25 | disposition home or self-care (01) | DRG 806 ==
LOC: WPOUT 22:52 → WP 22:52
PROVIDERS: Admitting Provider Obstetrics & Gynecology; Visit Provider Obstetrics & Gynecology
DX: O70.0 First degree perineal laceration during delivery (principal); Z37.0 Single live birth; O99.354 Diseases of the nervous system complicating childbirth; G93.0 Cerebral cysts; J45.909 Unspecified asthma, uncomplicated; F32.9 Major depressive disorder, single episode, unspecified; O99.344 Other mental disorders complicating childbirth; F90.0 Attention-deficit hyperactivity disorder, predominantly inattentive type; Z3A.40 40 weeks gestation of pregnancy; O48.0 Post-term pregnancy; O77.0 Labor and delivery complicated by meconium in amniotic fluid; O99.52 Diseases of the respiratory system complicating childbirth; O36.5930 Maternal care for other known or suspected poor fetal growth, third trimester, not applicable or unspecified
CPT/HCPCS: 59025; 59050; 85025; 86780; 86850; 86900; 86901; 99221; J7120; A4216; G0378; J2405

== ENCOUNTER → 2024-05-19 | Outpatient (CLI) | payer OTHER, SELFPAY ==
--- NOTE | 2024-05-19 17:05 | US_ITS ---
STUDY: ULTRASOUND OF THE FEMALE PELVIS - COMPLETE REASON FOR EXAM: Female, 28 years old. Pelvic pain left greater than right. LMP: May 09, 2024. TECHNIQUE: Transabdominal and Transvaginal TECHNICAL QUALITY: Adequate. COMPARISON: None. FINDINGS: The uterus is anteverted and is in a midline position. The uterus measures 7.8 cm x 6.1 cm x 3.9 cm. Normal uterine cervix. The endometrium measures 5 mm in thickness, and is hyperechoic. There is no demonstrated endometrial mass. There is no demonstrated myometrial mass. I.U.D. - The patient does not have an I.U.D. The right ovary is visualized. The right ovary measures 3.1 cm x 2.2 cm x 2.3 cm. There is no right ovarian cyst or ovarian mass. There is no visualized right adnexal mass or complex lesion. There is normal arterial and normal venous vascularity. The left ovary is visualized. The left ovary measures 4.3 cm x 2.7 cm x 2.3 cm. There is a 1.4 cm x 1.3 cm x 1 cm left ovarian follicle. There is no visualized left adnexal mass or complex lesion. There is normal arterial and normal venous vascularity. There is minimal fluid in the cul-de-sac. The pre void volume of the bladder was 109 ml. US/Pelvic w/ Transvaginal IMPRESSION: Small follicle in the left ovary. Electronically Signed: Sumit Rios MD at 9:45 EDT ,
== END | disposition home or self-care (01) ==
LOC: US 17:03
PROVIDERS: Referring Provider Obstetrics & Gynecology; Visit Provider Obstetrics & Gynecology
DX: R10.2 Pelvic and perineal pain (principal)
CPT/HCPCS: 76830; 76856

== ENCOUNTER → 2024-06-29 | Outpatient (CLI) | payer OTHER, SELFPAY ==
[2024-07-05 13:13] LABS: HPV Reflexed? NOT INDICATED
== END | disposition home or self-care (01) ==
LOC: LABSPEC 16:37
PROVIDERS: Referring Provider Obstetrics & Gynecology; Visit Provider Obstetrics & Gynecology
DX: Z12.4 Encounter for screening for malignant neoplasm of cervix (principal)
CPT/HCPCS: 88175; G0145

== ENCOUNTER → 2025-09-22 | Outpatient (CLI) | payer OTHER, SELFPAY ==
[2025-09-22 12:18] LABS: Hematocrit 40.7 % (37-47); Hemoglobin 13.6 g/dL (12.0-15.0); Immature Granulocytes Count 0.010 X10^3/uL (0.0-0.0); Mean Corp Hgb Conc 33.4 g/dL (32-36); Mean Corpuscular Volume 91.5 fL (81-99); Mean Platelet Vol. 11.7 fl (6.2-12.0); NRBC Flagged by Analyzer 0 % (0-5); Platelet Count 218 K/mm3 (150-450); RBC Distribution Width CV 12.2 % (11.6-14.6); RBC Distribution Width SD 41.1 fl (35.1-43.9); Red Blood Count 4.45 M/mm3 (4.2-5.4); White Blood Count 6.0 K/mm3 (4.4-11.0)
[2025-09-22 13:14] LABS: AST(SGOT) 23 U/L (<=31); Alanine Aminotransfer ALT/SGPT 30 U/L (<=34); Albumin, Serum 4.6 g/dL (3.5-5.0); Alkaline Phosphatase 47 U/L (35-104); Anion Gap 10 (5-15); BUN 18 mg/dL (4-19); BUN/Creat Ratio 25.0 RATIO (10-20); Calcium,Total 9.5 mg/dL (7.6-11.0); Carbon Dioxide 26.5 mmol/L (21.0-32.0); Chloride 103 mmol/L (98-108); Globulin 2.7 g/dL (2.2-4.2); Glucose 82 mg/dL (70-99); Potassium 3.6 mmol/L (3.3-5.1); Vitamin D,25 Hydroxy 56.7 ng/mL (30-100)
== END | disposition home or self-care (01) ==
PROVIDERS: Visit Provider Obstetrics & Gynecology
DX: K63.8219 Small intestinal bacterial overgrowth, unspecified (principal); F41.9 Anxiety disorder, unspecified; Z13.29 Encounter for screening for other suspected endocrine disorder
CPT/HCPCS: 36415; 80053; 82306; 84443; 85025